=== PATIENT | female | born 1975 | race Caucasian/White ===

== ENCOUNTER 2016-08-21 22:22 | Emergency (ER) | payer MEDICAID ==
--- NOTE | ~2016-08-21 | ER ---
PATIENT'S NAME: FRANCISCO J DURAND [facility] AGE: 40 Y [address] ROOM: [place] [address] LOCATION: [facility] ADMIT DATE: 08/21/2016 ER/Outpatient Report DISCHARGE DATE: 08/21/2016 FAMILY PHYSICIAN: Maynor Shearer ATTENDING PHYSICIAN: Orville Burgess Admission date and time are documented on the medical record. I saw the patient at 2230 hours. CHIEF COMPLAINT: Anxiety. HISTORY OF PRESENT ILLNESS: This patient is a 40-year-old female who has had problem with anxiety for about 14 years. She has been on Klonopin 2 mg twice a day; however, ran out of medications a week ago; so, she has not been taking that for a week. She has done counseling in the past. She just moved from [facility] to [place] and is looking for personal physician and possibly some type of counseling. She desires to have her Klonopin refilled. HOME MEDICATIONS: See attached medication list. ALLERGIES: PENICILLIN AND CLINDAMYCIN. SOCIAL HISTORY: Nonsmoker, nondrinker. SIGNIFICANT PAST MEDICAL HISTORY: Fibromyalgia and anxiety. OPERATIONS: Hiatal hernia surgery, cholecystectomy, and hysterectomy. REVIEW OF SYSTEMS: All systems reviewed by me are negative with the exception of those discussed in the history of present illness. PHYSICAL EXAMINATION: VITAL SIGNS: Temperature 97, pulse 89, respirations 18, blood pressure 128/73, and O2 sat on room air is 99%. HEAD: Normocephalic. EYES, EARS, NOSE, AND THROAT: Clear. Mucous membranes moist. NECK: No nuchal rigidity. No thyromegaly or cervical adenopathy. PATIENT'S NAME: FRANCISCO J [facility] AGE: 40 Y [address] ROOM: [place] [address] LOCATION: [facility] ADMIT DATE: 08/21/2016 ER/Outpatient Report DISCHARGE DATE: 08/21/2016 FAMILY PHYSICIAN: Maynor Shearer ATTENDING PHYSICIAN: Orville Burgess LUNGS: Clear. No rales, rhonchi, or wheezes. HEART: Regular. Pulses are palpable. ABDOMEN: Soft, nontender. Good bowel tones. EXTREMITIES: Intact. NEUROVASCULAR: Intact. SKIN: Clear. IMPRESSION: Anxiety. PLAN: The patient was given a script for Klonopin 2 mg b.i.d. #14. Discharged from the emergency department. Fluids, diet as tolerated. Continue home meds and care. Follow up with personal physician as scheduled. Discussion ensued with the patient concerning my findings and recommendations, she understands. MD KIARRA PEREZ/modl /[id number] d: 08/22/16132 t: 08/22/16 181, OUTPATIENT REPORT
== END 2016-08-21 22:49 | disposition disaster alternative care site (69) ==
LOC: GMED 22:22
DX: F41.9 Anxiety disorder, unspecified (principal); Z88.1 Allergy status to other antibiotic agents; Z88.0 Allergy status to penicillin; Z90.49 Acquired absence of other specified parts of digestive tract; Z90.710 Acquired absence of both cervix and uterus

== ENCOUNTER 2016-12-04 21:17 | Emergency (ER) | payer MEDICAID ==
--- NOTE | ~2016-12-04 | ER ---
PATIENT'S NAME: FRANCISCO J DURAND [facility] AGE: 41 Y [address] ROOM: [place] [address] LOCATION: [facility] ADMIT DATE: 12/04/2016 ER/Outpatient Report DISCHARGE DATE: 12/04/2016 FAMILY PHYSICIAN: Vlad Salazar MD ATTENDING PHYSICIAN: Orville Burgess Admission date and time documented in the medical record. I saw the patient at 2125 hours. CHIEF COMPLAINT: Anxiety. HISTORY OF PRESENT ILLNESS: This patient is a 41-year-old female, who states she has problems with anxiety. She usually takes Klonopin 2 mg twice a day but has run out of this. She ran out of the medicines 2 weeks ago. [facility], and states that she can not get amended to see her personal physician to get her medicines refilled. She came in to get a refill of her Klonopin. No other complaints. HOME MEDICATIONS: See attached medication list. ALLERGIES: PENICILLIN AND CLINDAMYCIN. SOCIAL HISTORY: Nonsmoker, nondrinker. SIGNIFICANT PAST MEDICAL HISTORY: Fibromyalgia and anxiety. OPERATIONS: Hiatal hernia surgery, cholecystectomy, and hysterectomy. REVIEW OF SYSTEMS: All systems reviewed by me are negative with the exception of those discussed in the history of the present illness. PHYSICAL EXAMINATION: VITAL SIGNS: Temperature 97.4 tympanic, pulse 97, respirations 16, blood pressure 132/75, O2 saturation on room air is 97%. HEAD: Normocephalic. EYES, EARS, NOSE, THROAT: Clear. Mucous membranes moist. NECK: Negative. LUNGS: Clear. PATIENT'S NAME: FRANCISCO J DURAND [facility] AGE: 41 Y [address] ROOM: [place] [address] LOCATION: [facility] ADMIT DATE: 12/04/2016 ER/Outpatient Report DISCHARGE DATE: 12/04/2016 FAMILY PHYSICIAN: Vlad Salazar MD ATTENDING PHYSICIAN: Orville Burgess HEART: Regular. ABDOMEN: Soft, nontender. Good bowel tones. EXTREMITIES: Intact. NEUROVASCULAR: Intact. SKIN: Clear. No skin eruptions or rash. IMPRESSION: Anxiety. PLAN: Did fill Klonopin 2 mg twice a day, #6. Follow up with personal physician in the next few days. MD KIARRA PEREZ/sukhi /[id number] d: 12/04/16 2338 t: 12/05/16 1808, OUTPATIENT REPORT
== END 2016-12-04 21:39 | disposition disaster alternative care site (69) ==
LOC: GMED 21:17
DX: F41.9 Anxiety disorder, unspecified (principal); Z90.49 Acquired absence of other specified parts of digestive tract; Z90.710 Acquired absence of both cervix and uterus; Z88.0 Allergy status to penicillin; Z88.1 Allergy status to other antibiotic agents; Z88.8 Allergy status to other drugs, medicaments and biological substances